=== PATIENT | male | born 1980 | race Caucasian/White ===

== ENCOUNTER 2024-04-19 13:51 | Emergency (ER) | payer OTHER, SELFPAY ==
[2024-04-19 14:02] VITALS: BP 119/87
--- NOTE | 2024-04-19 15:25 | ED.GENMED ---
History of Present Illness
General
Chief Complaint: Flank Pain
Time Seen by Provider: 04/19/24 15:10
History of Present Illness
History of Present Illness:
Patient is a 44-year-old man presenting to the emergency department for right-sided flank pain. Patient states that 2 weeks ago he developed right-sided flank pain. At first it was intermittent. It felt like a kidney stone. However for the past
3 days it has been constant. He has some associated nausea. No fevers chills. No numbness tingling saddle anesthesia or weakness. He does take 600 mg Advil twice daily without any relief. He thought that he pulled a muscle as he does have 2
active kids at home however the pain usually from that goes away. Denies any lightheadedness dizziness chest pain shortness of breath or history of kidney stones.
Past History
Past History
ED Past Medical History: None
ED Past Surgical History: None
Social History
Tobacco: Former smoker
Alcohol: Occasional
Personal:
Living: with family
Employment: Employed
Phy Exam
Physical Exam
Physical Exam:
GENERAL: in no acute distress
HEENT: normocephalic, extraocular movements intact, moist oral mucosa
NECK: normal inspection
RESPIRATORY: no respiratory distress, clear to auscultation bilaterally
CARDIOVASCULAR: regular rate and rhythm
ABDOMEN/: soft, non-distended, non-tender to palpation, no rebound or guarding
Right lower back tenderness
EXTREMITIES: non-tender, no edema/swelling
NEUROLOGIC: awake and alert, moves all extremities, equal strength in bilateral lower extremities, no sensory deficits
SKIN: warm
Course
Orders/Labs/Results
Orders:
Orders
04/19/24 15:24
CT Abd/pel Without Iv Or Oral Urgent
Comment:
Reason For Exam: flank pain
Ketorolac [Toradol] 15 mg IV NOW STA
04/19/24 15:49
Complete Blood Count/With Diff Urgent
Comprehensive Metabolic Panel Urgent
04/19/24 16:02
Urine Culture Reflexed from UA [Urinalysis Reflex To Culture] Urgent
Date Specimen was Collected: 04/19/24
Time Specimen was Collected: 16:01
04/19/24 17:05
Acetaminophen [Tylenol] 1,000 mg PO NOW STA
04/19/24 17:15
Lidocaine [Lidocaine 4% Patch] 1 patch TOPICAL DAILY
Apply Lidocaine patch(s) to:: right flank
Abnormal Lab Results
04/19/24
15:49
MPV 11.8 H fL
(7.4-10.4)
Glucose 129 H mg/dl
(70-99)
04/19/24 15:49
04/19/24 15:49
Vital Signs
Initial and Last Documented VS:
Initial Vital Signs
Temp Pulse Resp BP Pulse Ox
98.7 F 82 16 119/87 100
04/19/24 14:02 04/19/24 14:02 04/19/24 14:02 04/19/24 14:02 04/19/24 14:02
Last Documented Vital Signs
Temp Pulse Resp BP Pulse Ox
98.7 F 84 20 118/72 99
04/19/24 14:02 04/19/24 16:26 04/19/24 16:26 04/19/24 16:26 04/19/24 16:26
MDM/Problems Addressed
Differential Diagnosis Includes:
Patient is a 44-year-old man presenting to the emergency department with right-sided flank pain that was intermittent and is now constant with some nausea. Vitals are unremarkable and exam does show some tenderness to palpation in the right lower
area of the back. Differential consists of MSK pain versus kidney stone versus Laci. History and exam not consistent with aortic pathology or testicular etiology. Will check blood work urine and obtain CT scan kidney stone protocol. Will give IV
Toradol.
*Critical Care Note
Total Time (30-74mins, 75-104mins- exclusive of procedures): Not Applicable
Update Note
Update Note:
On reevaluation pain has slightly improved. Blood work urine negative. I did give Tylenol and lidocaine patch did help. CT scan does show mild diverticulitis which I did update patient on. Given that it is uncomplicated and he is mostly
symptomatic we will not give antibiotics. Patient will follow-up with his PCP.
ED Attending Note
-
Portions of this chart may have been created with voice recognition software.� Occasional wrong word or��sound alike� substitutions may have occurred due to the inherent limitations of voice recognition software.
Discharge Plan
Departure
Patient Disposition: Home (Routine Discharge)
Date of Disposition: 04/19/24
Time of Disposition: 18:39
Patient with high blood pressure during this ER visit?: No
Discharge Problem:
Acute flank pain, Diverticulitis
Instructions: Flank Pain (DC)
Prescriptions:
No Action
sucralfate [Carafate] 1 gram tablet
1 g PO ACHS Qty: 40 0RF
pantoprazole [Protonix] 40 mg tablet,delayed release (DR/EC)
40 mg PO BID Qty: 20 0RF
Referrals:
Anish Barrios DO [Family Provider] -
Interventions
Interventions:
*General Assessment Last Done: 04/19/24 15:21
ED- Fall Risk Assessment Last Done: 04/19/24 15:21
BV-Ymdvju-Agrbwwtsfc Assessment Last Done: 04/19/24 15:21
ED-Male Genitourinary Assessment Last Done: 04/19/24 15:21
Discharge Date and Time
Print Language: ICELANDIC
[2024-04-19] MEDS: TORADOL 15 MG IV (15:52)
[2024-04-19 16:13] LABS: % Basophils 0.4 % (0-2); % Eosinophils 1.2 % (0-6); % Immature Granulocytes 0.1 % (0-0.5); % Lymphocytes 35.4 % (20.5-51.1); % Monocytes 7.6 % (1.7-9.3); % Neutrophils 55.3 % (42.2-75.2); Absolute Eosinophils 0.1 10^3/uL (0-0.7); Absolute Lymphocytes 2.4 10^3/uL (1.2-3.4); Absolute Monocytes 0.5 10^3/uL (0.1-0.6); Absolute Neutrophils 3.7 10^3/uL (1.4-6.5); Hematocrit 40.3 % (39.0-52.0); Hemoglobin 14.3 g/dL (13.0-18.0); Mean Corp Hgb Conc. 35.5 g/dL (33.0-37.0); Mean Corpuscular Hgb 30.1 pg (27.0-31.0); Mean Corpuscular Volume 84.8 fL (80.0-94.0); Mean Platelet Volume 11.8 fL (7.4-10.4); Nucleated Red Blood Cells % 0 % (-); Platelet Count 178 10^3/uL (130-400); Red Blood Cell Count 4.75 10^6/uL (4.70-6.10); Red Cell Dist. Width 12.3 % (11.5-14.5); White Blood Cell Count 6.7 10^3/uL (4.8-10.8)
[2024-04-19 16:15] LABS: Urine Albumin Negative (Neg - Trace); Urine Bilirubin Negative (Negative); Urine Character Clear (Clear); Urine Color Yellow; Urine Glucose Negative (Negative); Urine Ketone Negative (Negative); Urine Leukocyte Negative (Negative); Urine Nitrite Negative (Negative); Urine Occult Blood Negative (Negative); Urine Urobilinogen Negative (Neg - 1+)
[2024-04-19 16:25] LABS: ALT (SGPT) 36 U/L (0-50); AST (SGOT) 26 U/L (17-59); Albumin 4.5 g/dl (3.5-5.0); Alkaline Phosphatase 55 U/L (38-126); Blood Urea Nitrogen 17 mg/dl (9-20); Calcium 9.2 mg/dl (8.4-10.2); Carbon Dioxide 26 mmol/L (22-30); Chloride 103 mmol/L (98-107); Glucose 129 mg/dl (70-99); Potassium 4.2 mmol/L (3.5-5.1); Sodium 142 mmol/L (135-145); Total Bilirubin 0.6 mg/dl (0.2-1.3); Total Protein 7.4 g/dl (6.3-8.2); eGFR > 60.00
[2024-04-19 16:26] VITALS: BP 118/72
[2024-04-19] MEDS: TYLENOL 1000 MG PO (17:34)
[2024-04-19] MEDS: LIDOCAINE 4% PATCH 1 PATCH TOPICAL (17:35)
== END 2024-04-19 18:51 | disposition home or self-care (01) ==
LOC: EMR 13:51
PROVIDERS: EMERGENCY PHYSICIAN Student in an Organized Health Care Education/Training Program; FAMILY PHYSICIAN Family Medicine
DX: K57.32 Diverticulitis of large intestine without perforation or abscess without bleeding (principal); Z87.891 Personal history of nicotine dependence
CPT/HCPCS: 96374; 99284; 74176; 80053; 81003; 85025